=== PATIENT | female | born 1955 | race Caucasian/White ===

== ENCOUNTER → 2024-01-12 | Outpatient (CLI) | payer MEDICARE, OTHER ==
[2024-01-12 10:30] LABS: Basophils # (A) 0.04 X 10*3/uL (0.00-0.10); Basophils % (A) 0.6 %; Eosinophils # (A) 0.19 X 10*3/uL (0.04-0.35); Eosinophils % (A) 2.9 %; HCT 44.8 % (37.2-46.3); HGB 14.2 g/dL (12.0-15.0); Lymphocytes # (A) 1.29 X 10*3/uL (0.90-5.00); Lymphocytes % (A) 19.8 %; MCH 27.4 pg (27.0-32.0); MCHC 31.7 g/dL (32.0-37.0); MCV 86.3 FL (80.0-97.0); Mean Platelet Volume 10.2 FL (9.5-12.2); Monocytes # (A) 0.61 X 10*3/uL (0.20-1.00); Monocytes % (A) 9.3 %; NRBC Per 100 WBC 0 X 10*3/uL (0.00-0.01); Neutrophils # (A) 4.38 X 10*3/uL (1.80-7.70); Neutrophils % (A) 67.1 %; Platelet Count 313 X 10*3/uL (140-440); RBC 5.19 X 10*6/uL (4.10-5.20); RDW 14.6 % (11.5-14.5); WBC 6.53 X 10*3/uL (4.50-10.00)
[2024-01-12 10:55] LABS: ALT 19 U/L (8-44); AST 23 U/L (13-35); Albumin 4.4 g/dL (3.8-4.9); Albumin/Globulin Ratio 1.52 Ratio (1.60-3.17); Alkaline Phosphatase 122 U/L (41-126); BUN/Creat Ratio 15.78 Ratio (12.00-20.00); Blood Urea Nitrogen 14.2 mg/dL (9.0-27.0); Calcium 9.8 mg/dL (8.7-10.3); Carbon Dioxide 25.9 mmol/L (21.6-31.8); Chloride 101 mmol/L (96-109); Chol/HDL Ratio 6.08 Ratio; Globulin 2.9 g/dL (1.6-3.3); Glucose 110 mg/dL (70-110); LDL Cholesterol,Calculated 179.7 mg/dL (0.0-131.0); Potassium 3.7 mmol/L (3.5-5.5); Sodium 139 mmol/L (135-145); Total Bilirubin 0.7 mg/dL (0.3-1.2); Total Protein 7.3 g/dL (6.2-8.2)
== END | disposition home or self-care (01) ==
LOC: LABWHC1 07:25
PROVIDERS: ATTEND Internal Medicine
CPT/HCPCS: 36415; 80053; 80061; 82140; 82607; 82746; 84443; 85025; 86780; 86803

== ENCOUNTER → 2024-02-04 | Outpatient (CLI) | payer MEDICARE, OTHER ==
--- NOTE | 2024-02-04 15:29 | BD ---
EXAMINATION TYPE: Axial Bone Density DATE OF EXAM: 02/04/2024 CLINICAL HISTORY: 68 years old Female. ICD-10 CODE: Z78.0 MARK ANTHONYO PABLO , Additional History: Height: 65 Weight: 170 FRAX RISK QUESTIONS: Family History (Parent hip fracture): no History of Fracture in Adulthood: yes Secondary Osteoporosis: no RISK FACTORS HISTORY OF: Surgery to Spine/Hip(right/left)/Wrist (right/left): no MEDICATIONS: Thyroid Medications: no Osteoporosis Medications: no EXAM MEASUREMENTS: Bone mineral densitometry was performed using the [employer] System. Bone mineral density as measured about the Lumbar spine is: ----- L1-L4(G/cm2): 1.233 T Score Values are as follows: ----- L1: -0.4 ----- L2: -0.6 ----- L3: 0.5 ----- L4: 1.9 ----- L1-L4: 0.4 Z Score Values are as follows: ----- L1: 0.9 ----- L2: 0.6 ----- L3: 1.7 ----- L4: 3.1 ----- L1-L4: 1.7 Bone mineral density has: Increased 5.5% since study of: 10/12/2005 Bone mineral density about the R hip (g/cm2): 0.926 Bone mineral density about the L hip (g/cm2): 0.921 T Score values are as follows: -----R Neck: -1.3 -----L Neck: -1.1 -----R Total: -0.6 -----L Total: -0.7 Z Score values are as follows: -----R Neck: 0.0 -----L Neck: 0.2 -----R Total: 0.4 -----L Total: 0.3 Bone mineral density has: Decreased -1.3% since study of: 10/12/2005 FRAX%s: The graph provided illustrates a 8.9% chance for a major osteoporotic fx and a 0.9% chance fo r the hips probability for fx in 10 years time. IMPRESSION: Normal (Values between +1 and -1 indicate normal bone mass). Consider repeating this study in 5 year s or sooner if there is some new clinical indication. NOTE: T-SCORE=SD OF THE YOUNG ADULT MEAN. [facility], , 02/04/2024 3:27 PM
--- NOTE | 2024-02-04 22:10 | MR ---
INDICATION: Patient age:Female; 68 years old; Reason for study: R41.3 MEMORY LOSS; PHH. COMPARISON: None. TECHNIQUE: Multi planar, multi sequence imaging was performed through the brain. The patient was then given 7 cc of Gadavist intravenously and multi planar, T1 fat-saturation images were obtained. FINDINGS: The lennon-white junctions, ventricular system, basal cisterns appear unremarkable. Age-appropriate cer ebral volume. Diffusion-weighted imaging shows no evidence of restricted diffusion to suggest acute/s ubacute infarct. Intracranial arterial flow voids are maintained. Midline structures show no abnormal ity. Couple of T2/FLAIR hyperintense signal foci within the subcortical and periventricular white mat ter with largest measuring 4 mm within the right frontal subcortical white matter (series 601, image 17). No corresponding enhancement. Approximately 3 foci identified. The susceptibility weighted image s do not reveal any evidence for micro-hemorrhage. After administration of gadolinium, no abnormal en hancement is seen. The bone marrow signal is within normal limits. Bilateral aphakia. Mild mucosal thickening of ethmoid sinuses. IMPRESSION: 1. No evidence of intracranial mass, acute/subacute infarct, or abnormal enhancement. 2. Few nonspecific white matter changes, likely related to small vessel ischemic disease. [facility], , 02/04/2024 10:07 PM
--- NOTE | 2024-02-08 17:56 | MM ---
Reason for Exam: Screening (asymptomatic). Last mammogram was performed 16 year(s) and 10 month(s) ago. Patient History: Menarche at age 15. First Full-Term at age 29. Postmenopausal. Risk Values: Manda 5 year model risk: 1.7%. NCI Lifetime model risk: 5.9%. Prior Study Comparison: No prior studies available for comparison. Tissue Density: There are scattered areas of fibroglandular density. Findings: Analyzed By CAD. No significant mass, suspicious microcalcification, or other discrete abnormality is seen. Overall Assessment: Negative, BI-RAD 1 Management: Screening Mammogram of both breasts in 1 year. . Patient should continue monthly self-breast exams. A clinical breast exam by your physician is recommended on an annual basis. This exam should not preclude additional follow-up of suspicious palpable abnormalities. Note on Manda scores and lifetime risk: 1. A Manda score greater than 3% is considered moderate risk. If this is the case, consider specialist referral to assess eligibility for a risk reducing agent. 2. If overall lifetime risk for the development of breast cancer is 20% or higher, the patient may qualify for future screening with alternating mammogram and breast MRI. [facility], , 02/08/2024 5:53 PM. Electronically signed and approved by: Jake tSrong M.D. Radiologis
== END | disposition home or self-care (01) ==
LOC: RADMAMWWP 13:56
PROVIDERS: ATTEND Internal Medicine
DX: Z12.31 Encounter for screening mammogram for malignant neoplasm of breast (principal); Z78.0 Asymptomatic menopausal state; R41.3 Other amnesia; Z13.820 Encounter for screening for osteoporosis; R92.323 Mammographic fibroglandular density, bilateral breasts; H27.03 Aphakia, bilateral
CPT/HCPCS: 77080; 77067; 77063; 70553; A9585

== ENCOUNTER 2024-05-17 19:35 | Outpatient (CLI) | payer MEDICARE, OTHER ==
--- NOTE | 2024-05-18 10:46 | P.PCN ---
Description of Procedure: POLYSOMNOGRAPHY REPORT PROCEDURE(S)/DATE(S): Polysomnography 05/17/2024 CLINICAL: Patient has been seen in the sleep center for evaluation of obstructive sleep apnea-hypopnea syndrome. Please see my consultation. Sleep study has been done for evaluation of patient breathing during the sleep. PROCEDURE: The standard montage for clinical polysomnography included the electroencephalogram, the electrooculogram, the mentalis surface electromyography and Lead II cardiography. The respiratory battery consisted of measurements of nasal/buccal air flow, pressure transducer measurements from nose, thoracic and/or abdominal effort and intercostal surface electromyography. Video monitoring has been done to check for any parasomnia events. Nocturnal oxyhemoglobin saturations were obtained by finger oximetry. Step-estrada titration with positive airway pressure was utilized to control the respiratory events, if necessary. RESULTS: During the diagnostic sleep study sleep efficiency was slightly decreased to 85.6%. Latency to sleep onset was prolonged to 45.5 min. Sleep architecture showed stage NI was slightly short 4.5%, Delta sleep was extremely short 0.3%, REM sleep was normal 22.5%. Respiratory channel showed 0 obstructive apneas, 0 mixed apneas, 0 central apneas, 22 hypopneas with lowest oxygen level 77%. Total apnea hypopnea index was 4.0. Oxygen level was below 89% for 4.5 minutes. Heart rate was in the range between 70 and 75, average 72. EMG showed 0 periodic limb movements per hour. IMPRESSIONS: 1. No significant respiratory abnormalities have been documented during the sleep study. Apnea hypopnea index 4.0, which is in normal range by today's criterias. 2. No significant periodic limb movements have been documented. 3. Loud snoring have been documented during the sleep study. Please see other impressions from consultation PLAN: 1. Sleep hygiene with regular time in bed for at least 7-1/2 hours. 2. No driving if feeling sleepiness. 3. Preferable position during the sleep on the side. 4. Watching weight. 5. I will see patient for follow-up visit to explain results of the test. Thank you very much for allowing me to participate in the management of your patient. Sincerely, Jcarlos Montemayor MD, PhD, FAASM. Diplomat of [place] [employer], Sleep Medicine Board by [place] [employer] Press Tool Maker [facility] [place] cc: Whateley, Kiran DO
== END 2024-05-18 06:00 | disposition home or self-care (01) ==
LOC: 3 N SLEEP 19:35
PROVIDERS: ATTEND Internal Medicine
DX: R06.83 Snoring (principal)
CPT/HCPCS: 95810

== ENCOUNTER → 2024-06-29 | Outpatient (CLI) | payer MEDICARE, OTHER ==
[2024-06-29 16:33] VITALS: BP 148/89; PULSE 76; RESP 16; TEMP 98.3
--- NOTE | 2024-06-29 16:54 | P.PROGSL ---
Subjective DATE: 06/29/2024 FOLLOW UP VISIT. Patient returned to sleep center for follow-up visit to discuss results of polysomnogram and following plan. I discussed the results of sleep study with patient and her in details. Polysomnogram showed loud snoring with total apnea hypopnea index 4.0, oxygen desaturation to 77% and oxygen level was below 89% for 4.5 minutes. . [place] sleepiness scale is 1. MEDICATIONS:1. Atorvastatin During physical exam: GENERAL: A pleasant patient without any distress. VITAL SIGNS: BP 148/89, HR 76 . HEENT: PERRLA, EOMI, low position of soft palate Mallampati 4. NECK: Supple. No JVD. LUNGS: Clear to percussion and to auscultation. Good air exchange. No wheezing or rhonchi. HEART: S1, S2 regular. ABDOMEN: Soft and nontender. EXTREMITIES: No clubbing or cyanosis. SCAFFOLD WORKER: Awake, alert, and oriented x3. No focal deficit. Impressions: 1. Loud snoring during polysomnogram with some oxygen desaturation. Apnea hypopnea index is 4.0, which is in normal range, but close to the border. 2. Memory problems. 3. Blood pressure in the office during previous visit 167/93, today 148/89. 4. Overweight, borderline to obesity. Plan: 1. Home sleep apnea test for evaluation of patient breathing during sleep. 2. Sleep hygiene with regular time in bed for at least 8 hours. 3. Watching and losing weight 4. Precautions related to driving. No driving if feel any sleepiness. Patient is aware about civil and criminal liability for unsafe driving, promised to follow recommendations. 5. Monitoring blood pressure, low-sodium diet. 6. Following plan after reading home sleep apnea test. Thank you very much for allowing me to participate in the management of your patient. Jcarlos Montemayor MD, PhD, FAASM. Diplomat of [place] [employer], Sleep Medicine Board by [place] [employer] Executive Pastry Chef [facility] [place] cc: Kiran Villagomez DO Objective - Vital Signs Vital Signs: Vital Signs Temp 98.3 F 06/29/24 16:31 Pulse 76 06/29/24 16:31 Resp 16 06/29/24 16:31 BP 148/89 06/29/24 16:31 Pulse Ox 97 06/29/24 16:31 FiO2
== END ==
LOC: 3 N SLEEP 16:20
PROVIDERS: ATTEND Internal Medicine
DX: G47.33 Obstructive sleep apnea (adult) (pediatric) (principal); I10 Essential (primary) hypertension; E66.9 Obesity, unspecified
CPT/HCPCS: 99212

== ENCOUNTER → 2024-07-17 | Outpatient (CLI) | payer MEDICARE, OTHER ==
--- NOTE | 2024-07-19 13:44 | P.PCN ---
Description of Procedure: CLINICAL: A home sleep apnea test has been done for confirmation of possible obstructive sleep apnea-hypopnea syndrome. DESCRIPTION OF PROCEDURE: RESULTS: Recording time was 7 hours 38 minutes. Evaluation time was 7 hours 26 minutes. Evaluation time is sufficient for making conclusion about results of the test. Raw data of sleep recording has been reviewed and is adequate. Respiratory channel showed 4 apneas and 111 hypopneas. Apnea-hypopnea index was 15.4 per hour. Pulse rate in the range between minimum 59, maximum 96, average 69 by computer calculation. Lowest desaturation was 74%. IMPRESSION: 1. Moderate Obstructive Sleep Apnea Hypopnea Syndrome. Please see other impressions from consultation. PLAN: 1. The patient should have PAP titration for correction of respiratory abnormallities during sleep. 2. I will see patient for follow up visit to discuss results of the test, evaluate clinical response on treatment with PAP therapy and make any necessary adjustments related to mask fitting, pressure, and humidification. 3. Watching weight. 4. Sleep hygiene with regular time in bed for at least 8 hours. 5. No driving if feeling any sleepiness. Thank you very much for allowing me to participate in the management of your patient. Sincerely, Jcarlos Montemayor MD, PhD, FAASM Diplomat of [place] [employer] Sleep Medicine Board of [place] [employer] Fruit Farmworker [facility] [place]
== END ==
LOC: 3 N SLEEP 11:09
PROVIDERS: ATTEND Internal Medicine
DX: G47.33 Obstructive sleep apnea (adult) (pediatric) (principal)

== ENCOUNTER 2024-08-16 19:35 | Outpatient (CLI) | payer MEDICARE, OTHER ==
--- NOTE | 2024-08-24 11:47 | P.PCN ---
Description of Procedure: CLINICAL: Titration with positive air pressure has been done for correction of respiratory abnormalities during sleep. DESCRIPTION OF PROCEDURE: The standard montage for clinical polysomnography included the electroencephalogram, the electrocardiogram, the mentalis surface electromyography and Lead II cardiography. The respiratory battery consisted of measurements of nasal /buccal air flow, pressure transducer measurements from the nose, thoracic and /or abdominal effort and intercostal surface electromyography. Video monitoring has been done to check for any parasomnia events. Nocturnal oxyhemoglobin saturations were obtained by finger oximetry. Step-estrada titration with positive airway pressure was utilized to control respiratory events. Raw data of sleep recording has been reviewed and is adequate. RESULTS: Sleep efficiency was significantly decreased to 53.0%. Latency to sleep onset was extremely long 168.0 minutes.]. Sleep architecture showed stage N1 was normal 5.5%, Delta sleep was absent 0%, REM sleep was short 15.3%. Heart rate was minimum 59 BPM, maximum 73 BPM, average 62 BPM. EMG showed 25.9 periodic limb movements per hour with 0 micriarousals per hour. PAP titration have been done with CPAP up to the pressure 11 cm H2O. The best results were at the pressure 11 cm H2O. Apnea hypopnea index reduced to 1.3. IMPRESSION: 1. Obstructive sleep apnea hypopnea syndrome mostly on controle with PAP treatment. 2. Significant periodic limb movements have been documented. Please see other impressions from consultation. PLAN: 1. The patient will have treatment with positive air pressure equipment with the level of pressure AutoPap 512 cm H2O and should use it every night for the whole night. 2. Watching weight. 3. Sleep hygiene with regular time in bed for at least 8 hours. 4. No driving if feeling any sleepiness. 5. I will see the patient for follow up visit to explain the results of the t est, recommendations, check compliance with treatment and make any necessary adjustment related to mask fitting, pressure and humidification. 6. Please check iron profile including ferritin level. Low level of iron may increase risk for periodic limb movements Thank you very much for allowing me to participate in the management of your patient. Sincerely, Jcarlos Montemayor MD, PhD, FAASM Diplomat of [place] [employer] Sleep Medicine Board of [place] [employer] Sales Order Administrator [facility] [place] cc: Kiran Villagomez DO
== END 2024-08-17 06:45 | disposition home or self-care (01) ==
LOC: 3 N SLEEP 19:35
PROVIDERS: ATTEND Internal Medicine
DX: G47.33 Obstructive sleep apnea (adult) (pediatric) (principal); G47.61 Periodic limb movement disorder; Z99.89 Dependence on other enabling machines and devices
CPT/HCPCS: 95811